=== PATIENT | female | born 1990 | race Caucasian/White ===

== ENCOUNTER → 2019-07-08 13:52 | Outpatient (BNVA) | payer OTHER, SELFPAY | PROVIDERS: Family Provider Nurse Practitioner; PCP Nurse Practitioner; Visit Provider Obstetrics & Gynecology | DX: Z32.00 Encounter for pregnancy test, result unknown (principal) | CPT/HCPCS: 81025 ==

== ENCOUNTER → 2019-08-12 08:58 | Outpatient (BNVA) | payer OTHER, MEDICAID, SELFPAY | PROVIDERS: Family Provider Nurse Practitioner; PCP Nurse Practitioner; Visit Provider Obstetrics & Gynecology | DX: Z34.90 Encounter for supervision of normal pregnancy, unspecified, unspecified trimester (principal) | CPT/HCPCS: 80053; 80307; 84315; 85027; 86592; 86762; 86803; 86850; 86900; 87340; 87806 ==

== ENCOUNTER → 2019-08-31 14:38 | Outpatient (BNVA) | payer OTHER, SELFPAY | PROVIDERS: Family Provider Nurse Practitioner; PCP Nurse Practitioner; Visit Provider Obstetrics & Gynecology | DX: Z34.01 Encounter for supervision of normal first pregnancy, first trimester (principal) | CPT/HCPCS: 84315; 87491; 87591 ==

== ENCOUNTER → 2019-10-28 11:42 | Outpatient (BNVA) | payer OTHER, MEDICAID, SELFPAY | PROVIDERS: Family Provider Nurse Practitioner; PCP Nurse Practitioner; Visit Provider Obstetrics & Gynecology | DX: R30.0 Dysuria (principal) | CPT/HCPCS: 80053; 81003 ==

== ENCOUNTER → 2019-12-15 12:05 | Outpatient (BNVA) | payer OTHER, MEDICAID, SELFPAY | PROVIDERS: Family Provider Nurse Practitioner; PCP Nurse Practitioner; Visit Provider Obstetrics & Gynecology | DX: Z34.01 Encounter for supervision of normal first pregnancy, first trimester (principal) | CPT/HCPCS: 80053; 82950; 84315; 85025 ==

== ENCOUNTER → 2019-12-21 08:27 | Outpatient (BNVA) | payer OTHER, MEDICAID, SELFPAY | PROVIDERS: Family Provider Nurse Practitioner; PCP Nurse Practitioner; Visit Provider Obstetrics & Gynecology | DX: Z34.01 Encounter for supervision of normal first pregnancy, first trimester (principal) | CPT/HCPCS: 82951; 82952 ==

== ENCOUNTER → 2020-02-10 10:50 | Outpatient (BNVA) | payer OTHER, MEDICAID, SELFPAY | PROVIDERS: Family Provider Nurse Practitioner; PCP Nurse Practitioner; Visit Provider Obstetrics & Gynecology | DX: Z34.03 Encounter for supervision of normal first pregnancy, third trimester (principal) | CPT/HCPCS: 84315; 87081 ==

== ENCOUNTER 2020-02-22 22:23 | Outpatient (CLI) | payer OTHER, MEDICAID, SELFPAY ==
[2020-02-22 22:25] VITALS: RESP 16; TEMP 36.8
[2020-02-22 22:50] VITALS: PULSE 119; O2SAT 97
[2020-02-22 22:54] VITALS: BMI 28.3
[2020-02-22 22:55] VITALS: PULSE 101; O2SAT 97
[2020-02-23 00:09] VITALS: RESP 15; TEMP 36.6
== END 2020-02-23 00:10 | disposition home or self-care (01) ==
LOC: OPOB 22:41 → OBGYN 02-23
PROVIDERS: PCP Nurse Practitioner; Visit Provider Obstetrics & Gynecology
DX: O46.90 Antepartum hemorrhage, unspecified, unspecified trimester (principal); Z3A.00 Weeks of gestation of pregnancy not specified
CPT/HCPCS: 59025; 99211

== ENCOUNTER → 2020-02-29 14:50 | Outpatient (BNVA) | payer OTHER, MEDICAID, SELFPAY | PROVIDERS: PCP Nurse Practitioner; Visit Provider Obstetrics & Gynecology | DX: Z34.03 Encounter for supervision of normal first pregnancy, third trimester (principal) | CPT/HCPCS: 84315; 87635 ==

== ENCOUNTER 2020-03-06 07:23 | Inpatient (IN) | payer OTHER, MEDICAID, SELFPAY ==
[2020-03-05 19:30] VITALS: TEMP 36.5
[2020-03-05 19:52] VITALS: BMI 28.6
[2020-03-05 20:40] LABS: Basophils % 0.1 %; Eosinophils # 0.1 10^3/uL (0.0-0.8); Eosinophils % 0.6 %; Hematocrit 33.9 % (37.0-47.0); Hemoglobin 11.4 g/dL (11.5-15.3); Lymphocytes # 1.4 10^3/uL (0.8-4.8); Lymphocytes % 17.5 %; Mean Corpuscular HGB Conc 33.6 g/dL (30.0-36.0); Mean Corpuscular Hemoglobin 31.1 pg (28.0-34.0); Mean Corpuscular Volume 92.4 fL (81-99); Mean Platelet Volume 11.8 fL (7.4-10.4); Monocytes # 0.4 10^3/uL (0.2-0.9); Monocytes % 5.3 %; Neutrophils # 6.09 10^3/uL (1.8-7.7); Neutrophils % 75.9 %; Nucleated Red Blood Cells % 0 %; Platelet Count 239 10^3/cmm (130-400); Red Blood Count 3.67 10^6/uL (4.1-5.3); Red Cell Distribution Width 13.4 % (12.1-15.1)
[2020-03-05 20:50] VITALS: BP 112/55; PULSE 90
[2020-03-05] MEDS: miSOPROStol 100 mcg tablet 25 MCG VAGINAL (21:18)
[2020-03-05 21:20] VITALS: BP 102/51; PULSE 91
[2020-03-05 21:50] VITALS: BP 110/60; PULSE 90
[2020-03-05 22:02] LABS: Amphetamines Screen Urine Negative (Negative); Barbiturates Screen Urine Negative (Negative); Benzodiazepines Screen Urine Negative (Negative); Cocaine Screen Urine Negative (Negative); Opiate Screen Urine Negative (Negative); PCP Screen Urine Negative (Negative); THC Screen Urine Negative (Negative)
[2020-03-06] VITALS (87 sets, daily range): BP systolic 0–156; BP diastolic 0–97; PULSE 69–138; RESP 16–20; TEMP 36.6–36.9; O2SAT 98–100
[2020-03-06] MEDS: miSOPROStol 100 mcg tablet 25 MCG VAGINAL (01:12)
[2020-03-06] MEDS: oxytocin 30 UNIT/500 ML BAG IV (10:35)
[2020-03-06] MEDS: dextrose 5%-lactated ringers 1,000 ML 125 ML IV ×2 (10:36→16:19)
--- NOTE | 2020-03-06 10:45 | PM.OBGYHP ---
Providers/Chief Complaint Admitting Physician: Brett Goldsmith MD Primary TRANSPORTATION SPECIALIST: Van Winchester MD Primary Care Provider: MAKENZIE Fox Chief Complaint: INDUCTION OF LABOR HPI TRANSPORTATION SPECIALIST History of Present Illness Patient is a 29-year-old female, 1, para 0 with an LMP of 05/31/2019 and an EDC of 03/06/2020 based on LMP and consistent with an 8-week ultrasound, which places her at 40-0/7 weeks gestation today. She presented to labor and delivery in the evening of 03/05/2020 for cervical ripening and induction of labor due to term . She received 2 doses of Cytotec 25 mcg vaginally during the night. This morning she had made minimal to no cervical change. She was daryl between 2 to 5 minutes apart. She reports being more uncomfortable this morning. She has noticed some bloody tinged discharge. She reports baby has been moving well. She was without other complaints other than her back hurting. care has been mainly provided by Dr. Winchester at [facility]. Her had been uncomplicated. LABS: 08/12/2019 Blood type: A positive Antibody screen : Negative Intake CBC: 8.5<13.9/41.7> 306 Cystic fibrosis: Declined Rubella : Immune Hepatitis B surface antigen: Nonreactive Hepatitis C antibody: Nonreactive RPR: Nonreactive HIV: Nonreactive Drug screen: Negative Urine culture: Less than 5000 contaminants, no GBS NIPT: Declined 08/31/2019 Gonorrhea: Negative Chlamydia: Negative Pap smear: Negative for intraepithelial lesion or malignancy-05/11/2017 (Susan Zheng) 09/23/2019 Quad screen: Declines 12/15/2019: CBC: 10.1<11.2/33.4> 270 GCT: 156--elevated-needs 3-hour fasting GTT Urine culture: (Hematuria )--->less than 5000 contaminants, no GBS 12/21/2019: 3-hour GTT:--- 88, 171, 167, 125--only one abnormal value-not diabetic 02/10/2020 GBS: Negative 02/29/2020 COVID: Negative. OB Ultrasound LMP-05/31/2019 JEREMY by LMP-03/06/2020 1) 08/01/2019([facility]-dating) AUA-8w5d JEREMY by sono-03/04/2020 S=D --------> single live intrauterine , yolk sac pole noted, FH 174 bpm, bilateral ovaries appear normal, no free fluid, cervix closed. 2) 10/19/2019([facility]-anatomy) AUA-20w5d JEREMY by sono-03/02/2020 S=D -----> single live intrauterine , female, cephalic, anterior grade 1 placenta without previa, cervix closed-4 cm, STONE CARRIAGE OPERATOR-4.8 cm, EFW 358 g, 13 ounces, 66 percentile. Anatomy reviewed normal and complete Review of Systems Const: Denies: fever(s) or chills ENMT: Denies: throat pain or nasal congestion Card: Reports: swelling of feet/ankles; Denies: chest pain, palpitations or lightheadedness Resp: Denies: dyspnea, productive cough, non-productive cough or wheezing GI: Reports: abdominal pain; Denies: nausea, vomiting, diarrhea or constipation : Reports: urinary frequency and vaginal bleeding (This morning); Denies: difficulty voiding, dysuria, urinary urgency, hematuria, genital pruritis or vaginal discharge Musc: Reports: back pain Neuro: Denies: headache(s), dizziness or seizure-like activity Psych: Denies: anxiety or depression Tra/Lymph: Denies: easy bruising or easy bleeding Medications/Allergies Home Medications Medication Instructions Recorded Confirmed Last Taken Type prenat.vits,jorge,lib-rtor-vtsnz 1 tab PO DAILY 07/22/19 03/05/20 03/05/20 History Allergies Allergy/AdvReac Type Severity Reaction Status Date / Time promethazine AdvReac Seizure Verified 02/29/20 14:51 like shaking PFSH TRANSPORTATION SPECIALIST PFSH: Medical History No pertinent past medical history Denies: Hypertension, diabetes, hypercholesterol, heart, liver, lung, kidney, thyroid problems, bleeding or clottig disorders, DVT/PE, Genital herpes. 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 History History History 1 Term 0 Miscarriages/Ectopic 0 0 Living Children 0 Care JEREMY Calculator Estimated Delivery Date Method Current WG Current Estimate 03/06/20 LMP (Certain) 40w 0d Expected Delivery Route/Plan Vaginal. Specific Issues/Plans Constipation-controlled on Colace Vitals/I&O/Wt Last Vital Signs Temp 97.8 F 03/06/20 08:00 Pulse 84 03/06/20 09:43 Resp 16 03/06/20 08:00 BP 130/80 03/06/20 09:43 Weight last 48 hrs Weight 183 lb Physical Exam Const: COMMON NORMALS: no acute distress, average body habitus, alert and well nourished GENERAL APPEARANCE: well developed ORIENTATION/CONSCIOUSNESS: Yes oriented to person, Yes oriented to place and Yes oriented to time GI: COMMON NORMALS: Soft to palpation, non-tender, No hepatosplenomegaly present and no masses (Except for nontender gravid uterus) INSPECTION: Yes gravid abdomen AUSCULTATION: Yes normoactive bowel sounds PALPATION: Yes Soft to palpation, Yes No hepatosplenomegaly present and No Hernia present : EXTERNAL FEMALE EXAM: No Hernia present OTHER: Cervical exam (per nurse at 08:40) 75%, 2 cm, -3 station Extremity: COMMON NORMALS: no calf tenderness NARRATIVE EXTREMITY EXAM: Trace to 1+ lower extremity edema Neuro: SENSORIUM/ORIENTATION: Yes alert, Yes oriented to person, Yes oriented to place and Yes oriented to time Psych: COMMON NORMALS: normal affect MOOD & AFFECT: Yes euthymic mood Data : 03/05/20 20:30 Other data: Monitoring: Baseline heart rate 130s with moderate variability, reactive, no decelerations noted. Category 1 tracing. Contractions every 2 to 4 minutes. A&P Assessment and plan (1) Supervision of normal : Patient is currently 40-0/7 weeks gestation. She is being induced for term . She has received 2 doses of Cytotec 25 mcg vaginally during the night. She has now been started on Pitocin for induction of labor. I discussed with the patient and her partner that this could take several days. Prior to starting the Pitocin, I had given her the option of going home and coming back in in a few days to try this again. I discussed with her that in many cases, she has a better chance of proceeding into labor on her own with additional time being given. Questions were answered. Patient wanted to go ahead and proceed with induction of labor. Status: Acute Qualifiers: Normal : normal first Trimester: third trimester Qualified Code(s): Z34.03 - Encounter for supervision of normal first , third trimester Attestations Medical Necessity Statement*: Labor is being induced. Coding Level of Care Code Acute Tool Design Checker for Vicki Fwd Diagnoses Supervision of normal Z34.03 Normal : normal first Trimester: third trimester
[2020-03-06] MEDS: ondansetron 2 mg/ML SDV 2 mL 4 MG IVP ×3 (11:44→23:18)
[2020-03-06] MEDS: fentaNYL 50 mcg/mL INJ 2mL IVP ×2 (12:04→13:07)
[2020-03-06] MEDS: lactated ringers 1,000 ML 999 ML IV ×2 (12:39→13:41)
--- NOTE | 2020-03-06 13:41 | ANES.PREANE2 ---
Pre-Anesthetic Assessment Pre-Anesthetic Assessment: Height/Weight: Height 1.7 m Weight 83.007 kg Temp Pulse Resp BP 97.8 F 69 20 H 108/62 03/06/20 08:00 03/06/20 12:06 03/06/20 13:07 03/06/20 12:06 Preop Diagnosis: labor pains Proposed Procedure: epidural Was Beta Sandeep taken within 24 hours: N/A Social: Social History: No alcohol and No tobacco Exam: Pre-Anes Outpt Exam: alert, oriented x 3, clear to auscultation bilaterally and regular rate & rhythm Airway: Submandibular: WNL Cervical ROM: WNL MP: 2 Dentition: Full Pulmonary: Pulmonary: None reported CV/HEM: CV/HEM: None reported : : None reported Hepatic: Hepatic: None reported GI: GI: GERD Metabolic: Metabolic: None reported Musc/skel: Musc/skel: None reported Neuropsych: Neuropsych: None reported Anesthetic Plan: ASA status: 2 Anesthesia: Regional (specify below) Risk of > 500 ml blood loss (7ml/kg in children): No Meds/Allergies Current Medications: Current Medications Generic Name Dose Route Start Last Admin Trade Name Freq PRN Reason Stop Dose Admin Fentanyl 25 - 100 mcg 03/06/20 10:17 03/06/20 13:07 Fentanyl 50 Mcg/ Ml Inj 2ml IVP 50 mcg Q1H PRN Administration SEVERE PAIN Dextrose/Lactated Ringer's 1,000 mls @ 125 m ls/hr 03/05/20 20:15 03/06/20 12:39 Dextrose 5%-Lact ated Ringers IV Infused .Q8H СВЕТЛАНА Infusion Oxytocin 30 unit in 500 ml s @ 2 mls/hr 03/06/20 10:15 03/06/20 11:45 Pitocin IV 10 milliunit/min .Q24H СВЕТЛАНА 10 mls/hr Titration Protocol 2 MILLIUNIT/MIN Lactated Ringer's 1,000 mls @ 999 m ls/hr 03/06/20 12:14 03/06/20 13:41 Lactated Ringers IV 999 mls/hr .Q1H1M PRN Administration See label comment s Ondansetron HCl 4 mg 03/05/20 19:57 03/06/20 11:44 Ondansetron 2 Mg /Ml Sdv 2 Ml IVP 4 mg Q4H PRN Administration NAUSEA AND VOMITI NG PFSH Anesthesia PFSH: Medical History No pertinent past medical history Denies: Hypertension, diabetes, hypercholesterol, heart, liver, lung, kidney, thyroid problems, bleeding or clottig disorders, DVT/PE, Genital herpes. 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 Female Reproductive History: : 1 Data Anesthesia CBC & Chem 7: 03/05/20 20:30 Other Labs: Laboratory Results - last 48 hr 03/05/20 03/05/20 20:30 20:30 WBC 8.0 RBC 3.67 L Hgb 11.4 L Hct 33.9 L MCV 92.4 MCH 31.1 MCHC 33.6 RDW 13.4 Plt Count 239 MPV 11.8 H Neut % (Auto) 75.9 Lymph % (Auto) 17.5 Holt % (Auto) 5.3 Eos % (Auto) 0.6 Baso % (Auto) 0.1 Neut # (Auto) 6.09 Lymph # (Auto) 1.4 Holt # (Auto) 0.4 Eos # (Auto) 0.1 Baso # (Auto) 0.0 Nucleated RBC % (auto) 0 Nucleated RBCs # 0.0 Urine Opiates Screen Negative Ur Barbiturates Screen Negative Ur Phencyclidine Scrn Negative Ur Amphetamines Screen Negative U Benzodiazepines Scrn Negative Urine Cocaine Screen Negative U Marijuana (THC) Screen Negative Cardiac Studies: No Data to Display
--- NOTE | 2020-03-06 14:10 | P.ANES_ITS ---
Anesthesia Procedures Procedure/Date: 03/06/20 epidural Procedure Narrative: epidural complete, bolus given, epidural pump initiated with STEAM CLEANING MACHINE OPERATOR education given, vitals taken during procedure using OBIX system and satisfactory throughout, patient admits to decrease pain, report of procedure to OB RN Epidural: Time Out Performed: Yes Consents Signed: Procedure Consent Consent: requested by attending/covering physician, from patient, risks and benefits reviewed and patient agrees to proceed Lumbar Level: L3-L4 Epidural position: sitting Epidural procedure: sterile prep of area, 1% lidocaine to numb the area (3 mL), 18 g needle, negative for paresthesia passed, neg for paresthesia, test dose given, 1.5% xylocaine 1:200k epi (5 mL), 0.2% Ropivacaine bolus ml (5 mL), placed PCEA, no systemic response, sterile dressing applied, L.U.D. no apparent complications and 0.2% Ropiavacaine @ mls/hr (13 mL/hr)
[2020-03-06] MEDS: lidocaine 2% INJ 20 mL INJECTION (21:26)
--- NOTE | 2020-03-06 21:42 | P.PCNOB_ITS ---
Delivery Note: Date of delivery: March 06, 2020 Pre-delivery diagnoses: 1. Term at 40-0/7 weeks gestation 2. Meconium fluid. Post-delivery diagnoses: 1. Term at 40-0/7 weeks gestation - delivered 2. Fourth degree vaginal/perineal laceration - delivered. 3. Meconium fluid - delivered. 4. Viable female . Procedure: Spontaneous vaginal delivery with fourth degree vaginal/perineal laceration repair. Op report anesthesia: Epidural and Local Delivering Physician: Dr. Brett Goldsmith Estimated blood loss (mL): 300 Pre-Delivery Course: Patient is a 29-year-old female, 1, now para 1-0-0-1 with an LMP of 05/31/2019 and an EDC of 03/06/2020 based on LMP and consistent with an 8-week ultrasound, which placed her at 39-6/7 weeks gestation at the time of admission. She presented to labor and delivery at 19:01 on 03/05/2020 for induction of labor due to term . Her cervix on admission was 50% effaced and 1 cm dilated. She received 2 doses of Cytotec 25 mcg vaginally during the night. By approximately 06:00 on 03/06, she was 75% effaced and 2 cm dilated. She was daryl mildly and irregularly. By approximately 10:30 she was started on Pitocin induction. She became more uncomfortable during the afternoon and had epidural placed. By 16:00 she had spontaneous rupture of membranes with light meconium fluid present. She was 6 cm dilated. She progressed to complete dilation by 18:28. monitoring was reassuring during the labor course. Delivery: She started pushing at 18:39 and delivered at 20:20 as a spontaneous vaginal delivery of an occiput anterior female infant over a second-degree midline episiotomy under epidural anesthesia. Following delivery of the 's head, no nuchal cords were noted. The was spontaneously crying and placed on the mother's abdomen. Cord was clamped and then cut by the reported father of the baby. Baby was left in the care of the waiting nurses. Pitocin bolus was started. Placenta delivered intact by simple expression at 20:23. The cervix was palpated and noted to be intact. Vagina was palpated and a defect was noted along the right vaginal sidewall. On inspection, she was found to have a full-thickness, right sided, vaginal laceration that extended into the paravaginal space. It extended from the hymenal ring to approximately 6 cm along the vaginal wall and located at the approximately the 9 o'clock position. Patient was also noted to have a fourth degree perineal/vaginal extension of her second-degree episiotomy for approximately 3 cm length along the rectum from the anal opening. Patient also had a superficial right periurethral laceration. The periurethral laceration was hemostatic and required no repair. The vaginal sidewall was injected with 2% lidocaine plain. Starting at the apex of the vaginal sidewall laceration, the laceration was reapproximated using 3-0 Vicryl suture in a running locking fashion. The episiotomy and vaginal and perirectal tissue was injected with 2% lidocaine plain. The rectal mucosa was reapproximated in a simple running fashion using 3-0 chromic suture. The muscle of the anal sphincter was identified and grasped with Allis clamps. The muscle and surrounding capsule was reapproximated using 2-0 Vicryl suture in an interrupted fashion with stitches placed at 6, 8, 4, 10, 2, and 12:00 positions. This reapproximated the anal sphincter and capsule of the sphincter well. The posterior vaginal wall and deeper tissue was reapproximated using 3-0 Vicryl suture in a running locking fashion. At the hymenal ring, a transition stitch was made. The bulbocavernosus muscles were incorporated into the stitch bilaterally and it was then tied, pulling the bulbocavernosus muscles together well. The perineal body was reapproximated in a running fashion using 3-0 Vicryl suture. The perineal skin was reapproximated in a subcuticular fashion using 3-0 Vicryl suture. FINDINGS 1. Viable female , weighing 8 lbs 0 oz (3635 g) with a length of 21 inches and Apgars of 9 at 1 minute and 9 at 5 minutes. 2. Three-vessel cord with no loops of nuchal cord noted. 3. Normal-appearing placenta with an eccentric cord insertion. Post-Delivery Status: Mother and were left to recover in satisfactory condition. A&P Assessment and plan (1) Spontaneous vaginal delivery: Status: Acute (2) Fourth degree laceration of perineum, delivered, current hospitalization: Status: Acute Coding Level of Care Code Acute Corporate Specialist for Chg Fwd Diagnoses Spontaneous vaginal delivery O80 Fourth degree laceration of perineum, delivered, current hospitalization O70.3
[2020-03-06] MEDS: TRAMadol 50 mg Tablet PO (23:17)
[2020-03-07] VITALS (7 sets, daily range): BP systolic 100–130; BP diastolic 55–80; PULSE 86–98; RESP 16; TEMP 36.4–36.9; O2SAT 96–98
[2020-03-07] MEDS: ondansetron 2 mg/ML SDV 2 mL 4 MG IVP (03:33)
[2020-03-07] MEDS: TRAMadol 50 mg Tablet PO (03:33)
[2020-03-07] MEDS: ibuprofen 800 mg tablet PO ×3 (10:01→21:25)
[2020-03-07] MEDS: docusate sodium 100 mg Capsule PO ×2 (10:02→18:09)
[2020-03-07 11:58] LABS: Hematocrit 31.5 % (37.0-47.0); Hemoglobin 10.5 g/dL (11.5-15.3); Mean Corpuscular HGB Conc 33.3 g/dL (30.0-36.0); Mean Corpuscular Hemoglobin 30.6 pg (28.0-34.0); Mean Corpuscular Volume 91.8 fL (81-99); Mean Platelet Volume 11.8 fL (7.4-10.4); Platelet Count 216 10^3/cmm (130-400); Red Blood Count 3.43 10^6/uL (4.1-5.3); Red Cell Distribution Width 13.4 % (12.1-15.1); White Blood Count 12.5 10^3/uL (4.0-10.0)
--- NOTE | 2020-03-07 17:51 | P.DS_ITS ---
Discharge Providers ORNAMENTAL IRON ERECTOR Date of Admission: 03/06/20 10:22 Date of Discharge: 03/07/20 Attending Provider at Admission: Brett Goldsmith MD Attending Provider at Discharge: Brett Goldsmith MD Primary ORNAMENTAL IRON ERECTOR: Van Winchester MD Primary Care Provider: MAKENZIE Fox Diagnoses at Discharge Discharge Diagnosis (1) Spontaneous vaginal delivery: Status: Acute (2) Fourth degree laceration of perineum, delivered, current hospitalization: Status: Acute Reason for Visit Reason for Visit: INDUCTION OF LABOR Hospital Course Hospital Course Patient is a 29-year-old female, 1, now para 1-0-0-1 with an LMP of 05/31/2019 and an EDC of 03/06/2020 based on LMP and consistent with a 8-week ultrasound, which placed her at 39-6/7 weeks gestation at the time of admission. She presented to L&D on 03/05/2020 at 19:01 for cervical ripening and induction of labor due to term . She was 50% effaced and 1 cm dilated on admission. She was started on Cytotec and received 2 doses of 25 mcg vaginally during the night. By the following morning she was 75% effaced and 2 cm dilated. She was given the option at that time of going home to come back on another day and try again or to proceed with Pitocin induction. She decided that she wanted to go ahead and go with the Pitocin. She was started on Pitocin at approximately 10:30. She became more uncomfortable and had epidural placed during the afternoon. She had spontaneous rupture of membranes with light meconium fluid present at 16:00 and was 6 cm dilated. She progressed to complete dilation by 18:28. She started pushing at 18:39 and delivered at 20:20 as a spontaneous vaginal delivery of an occiput anterior female over a second-degree midline episiotomy under epidural anesthesia. The baby weighed 8 lbs 0 oz (3635 g) with a length of 21 inches and Apgars of 9 at 1 minute 9 at 5 minutes. She had a large right sided full-thickness vaginal sidewall laceration at approximately the 9 o'clock position of the vagina. It extended for approximately 6 cm in length. She also had a fourth-degree extension of her second-degree episiotomy. Day 1 Patient reports doing well. She states that her pain is been well controlled. She is tolerating a regular diet without nausea or vomiting. She is ambulating without lightheadedness or dizziness. She denied shortness of breath or chest pains. She denies any problems with urination. She states that her bleeding has slowed. She is breast-feeding. She is requesting to go home today. Physical exam: See below. Plan Discharge to home. Discharge instructions discussed with patient. Patient was instructed to take MiraLAX and stool softeners at home. She plans to use [id number] ibuprofen and Tylenol as needed for pain. She is to follow-up in the office in approximately 6 weeks. Information Peripartum Data: Delivery Method: Vaginal Laceration description: Perineal - 4th Degree [place]: 1: Gender: Female Additional Information: weighing 8 lbs 0 oz (3635 g) with a length of 21 inches and Apgars of 9 at 1 minute and 9 at 5 minutes Physical Exam Const: COMMON NORMALS: no acute distress, average body habitus, alert and well nourished GENERAL APPEARANCE: well developed ORIENTATION/CONSCIOUSNESS: Yes oriented to person, Yes oriented to place and Yes oriented to time Resp: COMMON NORMALS: normal respiratory effort and clear to auscultation bilaterally AUSCULTATION: clear to auscultation bilaterally Cardio: COMMON NORMALS: regular rate, regular rhythm, No gallops present (Cardio), No murmurs present (Cardio) and No rub (Cardio) RATE: regular rate RHYTHM: regular rhythm GI: COMMON NORMALS: Soft to palpation, non-tender, No hepatosplenomegaly present and no masses (Except for nontender uterus) AUSCULTATION: Yes normoactive bowel sounds PALPATION: Yes Soft to palpation, Yes No hepatosplenomegaly present and No Hernia present : EXTERNAL FEMALE EXAM: No Hernia present Extremity: COMMON NORMALS: no calf tenderness NARRATIVE EXTREMITY EXAM: Trace to 1+ lower extremity edema bilaterally Neuro: SENSORIUM/ORIENTATION: Yes alert, Yes oriented to person, Yes oriented to place and Yes oriented to time Psych: COMMON NORMALS: normal affect MOOD & AFFECT: Yes euthymic mood Urinary Catheter Management^: [place]: Cath Placed During This Visit: yes, but has since been removed by the nurse Reason for Continuing Indwelling Catheter: Other Urinary Catheter Date of Insertion: 03/06/20 Urinary Catheter Time of Insertion: 14:49 Date Urinary Catheter Removed: 03/06/20 Time Urinary Catheter Discontinued: 18:35 Discharge Data Data Completed and Pending: Labs from last 24 hours 03/07/20 11:40 WBC 12.5 H RBC 3.43 L Hgb 10.5 L Hct 31.5 L MCV 91.8 MCH 30.6 MCHC 33.3 RDW 13.4 Plt Count 216 MPV 11.8 H Vitals: Last Vital Signs Temp 98.4 F 03/07/20 16:29 Pulse 86 03/07/20 16:29 Resp 16 03/07/20 16:29 BP 109/67 03/07/20 16:29 Pulse Ox 98 03/07/20 16:29 Discharge Plan Discharge Patient Disposition: Home Condition: Stable Prescriptions: Continued prenat.vits,jorge,[id number] Tablet 1 tab PO DAILY RF: 0 Discharge Orders: Discharge Order (Routine); Ordered 03/07/20 Ordered By: Brett Goldsmith Referrals: Van Keller MD [Physician] - 04/18/20 10:15 am ( exam) Discharge Diet: Regular Discharge Activity: Limit activity as instructed Patient Instructions: OB Vaginal Deliveries - [facility] Activity Restrictions/Additional Instructions: MiraLAX, use daily as instructed on bottle. OTC ibuprofen 200 mg, 3 tablets 4 times a day or 4 tablets 3 times a day, as needed for pain OTC Tylenol, use as instructed on the bottle. Discharge Attestations ORNAMENTAL IRON ERECTOR Time Spent in Discharge Care*: less than 30 min Coding Level of Care Code Acute Superintendent Plant for [facility] Fwd Diagnoses Spontaneous vaginal delivery O80 Fourth degree laceration of perineum, delivered, current hospitalization O70.3
--- NOTE | 2020-03-07 19:31 | PC.NURSE ---
1900 at patient bedside assisting with latching. Instruction on how to apply, latch, clean and weaning of nipple shield
[2020-03-07] MEDS: benzocaine-menthol 78 gm Canister 1 SPRAY TOPICAL (21:25)
== END 2020-03-07 21:27 | disposition home or self-care (01) | DRG 768 ==
LOC: OPOB 03-07 07:51 → OBGYN 03-07 07:51 → OPOB 03-07 07:52
PROVIDERS: Admitting Provider Obstetrics & Gynecology; PCP Nurse Practitioner; Visit Provider Obstetrics & Gynecology
DX: O48.0 Post-term pregnancy (principal); Z37.0 Single live birth; O70.3 Fourth degree perineal laceration during delivery; Z3A.40 40 weeks gestation of pregnancy; O75.89 Other specified complications of labor and delivery; K59.00 Constipation, unspecified
CPT/HCPCS: 12345; 36415; 51702; 59409; 80306; 85025; 85027; 98960; G0378; J2405; J2795; J3010

== ENCOUNTER → 2020-04-18 10:55 | Outpatient (BNVA) | payer OTHER, BC, MEDICAID, SELFPAY | PROVIDERS: PCP Nurse Practitioner; Visit Provider Obstetrics & Gynecology | DX: Z39.2 Encounter for routine postpartum follow-up (principal); Z30.9 Encounter for contraceptive management, unspecified; L92.9 Granulomatous disorder of the skin and subcutaneous tissue, unspecified | CPT/HCPCS: 88175 ==

== ENCOUNTER → 2020-05-04 14:55 | Outpatient (BNVA) | payer OTHER, BC, MEDICAID, SELFPAY | PROVIDERS: PCP Nurse Practitioner; Visit Provider Obstetrics & Gynecology | DX: Z30.9 Encounter for contraceptive management, unspecified (principal); R10.2 Pelvic and perineal pain | CPT/HCPCS: 81025 ==

== ENCOUNTER → 2022-02-03 11:19 | Outpatient (BNVA) | payer BC, MEDICAID, SELFPAY | PROVIDERS: Visit Provider Registered Nurse Neonatal Intensive Care | DX: R05.9 Cough, unspecified (principal) | CPT/HCPCS: 87400 ==

== ENCOUNTER 2022-08-31 16:15 | Inpatient (IN) | payer BC, MEDICAID, SELFPAY ==
[2022-08-31 16:36] VITALS: BP 101/69; PULSE 130; RESP 20; TEMP 36.5; O2SAT 97; BMI 26.6
--- NOTE | 2022-08-31 17:05 | ED_ITS ---
HPI - Abdominal Pain General: Chief Complaint: Abdominal Pain Stated Complaint: Possible miscarriage abd pain Time Seen by Provider: 08/31/22 16:52 History of Present Illness: Patient presents to the ER with complaints of being 5 weeks and started having bright red vaginal bleeding last night and having severe lower pelvic cramps. Patient complains of nausea and vomiting secondary to the pain but no diarrhea. This is a patient second patient will have these problems with her first . Review of Systems General: Reports: 10 or more systems reviewed and unremarkable except in HPI and below PFSH ED PFSH: Medical History Depression Is seeing , but is struggling to find a good medication that velazquez s not make her sleepy. No pertinent past medical history Denies: Hypertension, diabetes, hypercholesterol, heart, liver, lung, kidney, thyroid problems, bleeding or clottig disorders, DVT/PE. PCP: MAKENZIE Shah Surgical History H/O arthroscopic knee surgery (~2003) right knee--done for a torn meniscus Family History Denies family history of Colon cancer Ovarian cancer Diabetes Heart disease Hyperlipidemia Breast cancer Family history of thyroid problem Hypertension Uterine cancer Stroke Social History Substance/Drug Use: never Physical Exam Const: COMMON NORMALS: no acute distress, average body habitus, patient oriented x3, no limitations, healthy appearing, alert and well nourished HENMT: COMMON NORMALS: normocephalic, atraumatic, hearing grossly normal bilaterally, external ears normal, Normal external nose present and moist oral mucous membranes HEAD & SCALP: normocephalic and atraumatic NOSE: Normal external nose present EXTERNAL EAR: Yes external ears normal Neck/C-Spine: COMMON NORMALS: full ROM, no lymphadenopathy, supple, no meningeal signs, no JVD and Thyroid normal THYROID: Thyroid normal Chest: COMMONS NORMALS: normal inspection of the chest and normal palpation of entire chest wall Resp: COMMON NORMALS: normal respiratory effort, No retractions, No use of accessory muscles and clear to auscultation bilaterally AUSCULTATION: clear to auscultation bilaterally Cardio: COMMON NORMALS: no JVD, regular rate, regular rhythm, S1 normal heart sound present, S2 normal heart sound present, No gallops present (Cardio), No clicks present (Cardio), No murmurs present (Cardio) and No rub (Cardio) RATE: regular rate RHYTHM: regular rhythm HEART SOUNDS: S1 normal heart sound present and S2 normal heart sound present GI: COMMON NORMALS: Normal to inspection, nondistended, normoactive bowel sounds present, Soft to palpation, non-tender, No hepatosplenomegaly present and no masses PALPATION: Yes Soft to palpation, Yes Tenderness to palpation present (GI) and Yes No hepatosplenomegaly present : COMMON NORMALS: Yes no CVA tenderness BLADDER/KIDNEY EXAM: Yes no CVA tenderness Back/Pelvis: COMMON NORMALS: no CVA tenderness Neuro: COMMON NORMALS: patient oriented x3 SENSORIUM/ORIENTATION: Yes alert MENINGEAL SIGNS: Yes no meningeal signs Course Vital Signs: Vital signs: Vital Signs Temperature 98.1 F 09/01/22 16:07 Pulse Rate 105 H 09/01/22 16:07 Respiratory Rate 16 09/01/22 16:07 Blood Pressure 102/64 09/01/22 16:07 Pulse Oximetry 98 09/01/22 02:56 Oxygen Delivery Me thod Room Air 09/01/22 02:56 MDM - Abdominal Pain Medical Decision Making Presents to the OR approximately 5 weeks having bright red vaginal bleeding and lower severe pelvic pain and cramps. Work-up was obtained which showed a white count of 14.9 otherwise benign lab. OB ultrasound was obtained which was abnormal and did show single intrauterine with ultrasonic age of 6 weeks and 3 days but negative for heart rate, also showed a right adnexal poorly defined 9.2 cm erogenous structure with minimal blood flow which may reflect a hemorrhagic cyst and/or hemorrhagic ectopic . Dr. Melo was consulted and came down and seen the patient and reviewed the images himself. Dr. Melo says the patient will need to go to the OR for at least a laparoscopic look to see what is going on. Patient will then be admitted to Dr. Melo for observation. Differential Diagnosis Likely abdominal pain; Unlikely acute appendicitis, calculus of kidney, constipation, diverticulitis, endometriosis, gastroenteritis, pancreatitis or small bowel obstruction Medical Records I reviewed the patient's medical records. Lab Data I reviewed the patient's lab results. 09/01/22 04:45 08/31/22 17:13 Labs/Radiology: Radiology Impressions Obstetrics Ultrasound 08/31/22 17:44 IMPRESSION: 1. Single intrauterine with ultrasonographic age of 6 weeks 3 days. Negative for heart rate demonstrated, perhaps due to early age. 2. Small amount of free fluid in the pelvis, nonspecific. 3. Right adnexal poorly defined 9.2 cm heterogeneous structure with minimal peripheral color flow on several images. Finding may reflect a hemorrhagic cyst or perhaps a hemorrhagic ectopic , please correlate clinically. ADDENDUM: 08/31/222016 THIS REPORT CONTAINS FINDINGS THAT MAY BE CRITICAL TO PATIENT CARE. Dr. Leiva adv has seen report and has no questions, adv he just spoke to Ob about this case at 8:16 PM CDT on 08/31/2022. The findings were acknowledged and understood. Laboratory Results WBC 14.9 10^3/uL (4.0-10.0) H 08/31/22 17:13 RBC 4.34 10^6/uL (4.1-5.3) 08/31/22 17:13 Hgb 13.3 g/dL (11.5-15.3) 08/31/22 17:13 Hct 40.4 % (37.0-47.0) 08/31/22 17:13 MCV 93.1 fl (81-99) 08/31/22 17:13 MCH 30.6 pg (28.0-34.0) 08/31/22 17:13 MCHC 32.9 g/dL (30.0-36.0) 08/31/22 17:13 RDW 11.9 % (12.1-15.1) L 08/31/22 17:13 Plt Count 339 10^3/cmm (130-400) 08/31/22 17:13 MPV 10.8 fL (7.4-10.4) H 08/31/22 17:13 Neut % (Auto) 90.9 % 08/31/22 17:13 Lymph % (Auto) 6.5 % 08/31/22 17:13 Ralls % (Auto) 2.2 % 08/31/22 17:13 Eos % (Auto) 0.0 % 08/31/22 17:13 Baso % (Auto) 0.1 % 08/31/22 17:13 Neut # (Auto) 13.51 10^3/uL (1.8-7.7) H 08/31/22 17:13 Lymph # (Auto) 1.0 10^3/uL (0.8-4.8) 08/31/22 17:13 Ralls # (Auto) 0.3 10^3/uL (0.2-0.9) 08/31/22 17:13 Eos # (Auto) 0.0 10^3/uL (0.0-0.8) 08/31/22 17:13 Baso # (Auto) 0.0 10^3/uL (0.0-0.1) 08/31/22 17:13 Nucleated RBC % (auto) 0 % 08/31/22 17:13 Nucleated RBCs # 0.0 /100WBC 08/31/22 17:13 Sodium 135 mmol/L (136-145) L 08/31/22 17:13 Potassium 4.5 mmol/L (3.5-5.1) 08/31/22 17:13 Chloride 102 mmol/L (98-107) 08/31/22 17:13 Carbon Dioxide 20 mmol/L (22-29) L 08/31/22 17:13 Anion Gap 17.5 (5-19) 08/31/22 17:13 BUN 10 mg/dL (6-20) 08/31/22 17:13 Creatinine 0.7 mg/dL (0.5-0.9) 08/31/22 17:13 GFR Calculation 96.4 mL/min (90-130) 08/31/22 17:13 Glucose 123 mg/dL (65-115) H 08/31/22 17:13 Calculated Osmolality 280 mOsm/kg (285-295) L 08/31/22 17:13 Calcium 9.0 mg/dL (8.5-10.5) 08/31/22 17:13 Total Bilirubin 1.0 mg/dL (0.15-1.2) 08/31/22 17:13 AST 14 U/L (0-32) 08/31/22 17:13 ALT 14 U/L (0-33) 08/31/22 17:13 Alkaline Phosphatase 72 U/L (35-105) 08/31/22 17:13 Total Protein 7.5 g/dL (6.6-8.7) 08/31/22 17:13 Albumin 4.5 g/dL (3.5-5.2) 08/31/22 17:13 Globulin 3.0 g/dL (1.3-4.6) 08/31/22 17:13 Ser , Semi-Qnt 2046.00 mIU/mL 08/31/22 17:13 Blood Type A Positive 08/31/22 17:13 Rho(D) Type Positive 08/31/22 17:13 Discharge Plan Discharge Patient Disposition: Admitted As Inpatient Admit Provider: Dennis Melo Clinical Impression: , Pelvic pain affecting , Vaginal bleeding during Condition: Stable Discharge Diet: Usual diet Discharge Activity: Increase activity as tolerated Coding Level of Care Code ED Float Phlebotomist for Vicki Dooley
[2022-08-31 17:22] LABS: Basophils % 0.1 %; Hematocrit 40.4 % (37.0-47.0); Hemoglobin 13.3 g/dL (11.5-15.3); Lymphocytes % 6.5 %; Mean Corpuscular HGB Conc 32.9 g/dL (30.0-36.0); Mean Corpuscular Hemoglobin 30.6 pg (28.0-34.0); Mean Corpuscular Volume 93.1 fl (81-99); Mean Platelet Volume 10.8 fL (7.4-10.4); Monocytes # 0.3 10^3/uL (0.2-0.9); Monocytes % 2.2 %; Neutrophils # 13.51 10^3/uL (1.8-7.7); Neutrophils % 90.9 %; Nucleated Red Blood Cells % 0 %; Platelet Count 339 10^3/cmm (130-400); Red Blood Count 4.34 10^6/uL (4.1-5.3); Red Cell Distribution Width 11.9 % (12.1-15.1); White Blood Count 14.9 10^3/uL (4.0-10.0)
--- NOTE | 2022-08-31 17:44 | USR_ITS ---
PROCEDURE INFORMATION: Exam: US , Limited Exam date and time: 08/31/2022 6:20 PM Age: 32 years old Clinical indication: complicated by abdominal or pelvic pain; Right lower quadrant; First trimester (<14 weeks 0 days); Gestational age or lmp: 5w; ; Additional info: Vag bleeding, cramps, about 5 weeks LABS AND CLINICAL REPORTS: Last menstrual period start date: 07/27/2022 Gestational age (Established): 5 w 0 d Estimated due date (Established): 05/03/2023 TECHNIQUE: Imaging protocol: Real-time ultrasound of the maternal uterus with image documentation. Exam focused on the clinical indication. COMPARISON: US OB >= 14 weeks fetus [facility] 10/19/2019 8:06 AM FINDINGS: Gestation: See Right ovary/adnexa finding. BIOMETRY: Gestational age (AUA): Single intrauterine with ultrasonographic age of 6 weeks 3 days. Negative for heart rate demonstrated, perhaps due to early age. MATERNAL: Uterus: Uterus measures 8.6 cm x 5.6 cm x 5 cm. Right ovary/adnexa: Right adnexal poorly defined 9.2 cm heterogeneous structure with minimal peripheral color flow on several images. Finding may reflect a hemorrhagic cyst or perhaps a hemorrhagic ectopic , please correlate clinically. Left ovary/adnexa: Left adnexal region appears unremarkable. Intraperitoneal space: Small amount of free fluid in the pelvis, nonspecific. US/US OB limited [id number] IMPRESSION: 1. Single intrauterine with ultrasonographic age of 6 weeks 3 days. Negative for heart rate demonstrated, perhaps due to early age. 2. Small amount of free fluid in the pelvis, nonspecific. 3. Right adnexal poorly defined 9.2 cm heterogeneous structure with minimal peripheral color flow on several images. Finding may reflect a hemorrhagic cyst or perhaps a hemorrhagic ectopic , please correlate clinically.
[2022-08-31 17:52] LABS: Alanine Aminotransferase 14 U/L (0-33); Albumin Level 4.5 g/dL (3.5-5.2); Alkaline Phosphatase 72 U/L (35-105); Anion Gap 17.5 (5-19); Aspartate Amino Transferase 14 U/L (0-32); Blood Urea Nitrogen 10 mg/dL (6-20); Carbon Dioxide 20 mmol/L (22-29); Chloride 102 mmol/L (98-107); Creatinine Clr Calc Pharmacy 122.3573; Glomerular Filtration Rate 96.4 mL/min (90-130); Glucose 123 mg/dL (65-115); Osmolality Calculated 280 mOsm/kg (285-295); Potassium 4.5 mmol/L (3.5-5.1); Sodium 135 mmol/L (136-145); Total Protein 7.5 g/dL (6.6-8.7)
[2022-08-31] MEDS: acetaminophen 1,000 MG/100 ML PIGGYBACK 400 MG IV (18:11)
[2022-08-31] MEDS: sodium chloride 0.9% 1,000 ML 999 ML IV (18:16)
[2022-08-31] MEDS: ondansetron 2 mg/ML SDV 2 mL 4 MG IVP ×2 (19:57→21:05)
[2022-08-31] MEDS: morphine 4 mg/mL SDV 1 mL IVP ×2 (19:57→21:05)
--- NOTE | 2022-08-31 21:23 | P.HP_ITS ---
Providers/Chief Complaint Admitting Physician: Dennis Melo MD Primary LEAD CUSTOMER SERVICE REPRESENTATIVE: Dennis Melo M.D. Chief Complaint: Possible miscarriage abd pain approx. 5 weeks preg HPI LEAD CUSTOMER SERVICE REPRESENTATIVE History of Present Illness 32 y.o. LMP? July 25, 2022 Began to have severe lower abdominal pain yesterday at 5 p.m. Pain has worsened Now unable to walk she presented to the ER this afternoon due to worsening abdominal pain, now radiating to the right abdomen Pain began to radiate up on right side after arrival to ER No fever, chills + nausea, vomiting No dysuria + small amount of vaginal bleeding Medications/Allergies Home Medications Medication Instructions Recorded Confirmed Last Taken Type PNV 153-FA 400 mcg-om3 35 mg-dha tab PO 11/17/21 02/03/22 Unknown History 25 mg-epa 5 mg-fish oil chew tablet ( Gummies) etonogestrel 0.12 mg-ethinyl 1 vag ring vaginal .monthly #3 ea 11/17/21 02/03/22 Unknown Rx estradiol 0.015 mg/24 hr vaginal ring (NuvaRing) bupropion HCl 150 mg tablet,12 hr 150 mg PO DAILY 01/02/22 02/03/22 Unknown History sustained-release (Wellbutrin SR) oseltamivir 75 mg capsule 75 mg PO BID 5 days #10 caps 02/03/22 02/03/22 Unknown Rx Allergies Allergy/AdvReac Type Severity Reaction Status Date / Time promethazine AdvReac Seizure Verified 02/03/22 11:14 like shaking PFSH LEAD CUSTOMER SERVICE REPRESENTATIVE PFSH: Medical History Depression Is seeing , but is struggling to find a good medication that does not make her sleepy. No pertinent past medical history Denies: Hypertension, diabetes, hypercholesterol, heart, liver, lung, kidney, thyroid problems, bleeding or clottig disorders, DVT/PE. PCP: MAKENZIE Shah Surgical History H/O arthroscopic knee surgery (~2003) right knee--done for a torn meniscus Family History Denies family history of Colon cancer Ovarian cancer Diabetes Heart disease Hyperlipidemia Breast cancer Family history of thyroid problem Hypertension Uterine cancer Stroke Social History Substance/Drug Use: never History History History 1 Term 1 0 Miscarriages/Ectopic 0 Living Children 1 Vitals/I&O/Wt Last Vital Signs Temp 97.7 F 08/31/22 16:36 Pulse 130 H 08/31/22 16:36 Resp 20 H 08/31/22 16:36 BP 101/69 08/31/22 16:36 Pulse Ox 97 08/31/22 16:36 08/31/22 08/31/22 08/31/22 06:59 14:59 22:59 Intake Total 1000 / 1000 Balance 1000 / 1000 Weight last 48 hrs Weight 170 lb Physical Exam Narrative: In moderate discomfort secondary to abdominal pain Afebrile, VS? normal Awake, alert HEENT:? normal Lungs:? clear Cor:? RRR Abd:? soft, nondistended ? + moderate tenderness on palpation in lower quadrants ? No rebound Ext:? normal Data 08/31/22 17:13 08/31/22 17:13 Results DIET ASSISTANT 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 + intrauterine pole ? CRL c/w 6 weeks ? No heart motion ? + 9.3 cm right complex adnexal mass A&P Assessment and plan (1) Pelvic pain affecting : Approx. 5-6 weeks gestation Acute abdominal pain, severe Complex 9.3 cm right adnexal mass Suspect ectopic gestation vs. hemorrhagic ovarian cyst with torsion Recommend laparoscopy, possible salpingectomy, possible salpingo-oophorectomy, possible exploratory laparotomy Procedures and risks explained to patient, including risks of infection, bleeding, injury to internal organs, anesthesia, blood transfusions Patient understands and wants to proceed Also discussed presence of intrauterine pole without heart motion Most likely missed Ab, nonviable gestation Recommend suction D&C at the same time Procedure and risks explained to patient, including risks of injury to uterus, uterine scarring, which can result in infertility Patient understands and wants to proceed Qualifiers: Trimester: first trimester Qualified Code(s): O26.891 - Other specified related conditions, first trimester; R10.2 - Pelvic and perineal pain Attestations Medical Necessity Statement*: patient at approx 6 weeks with intrauterine pole without heart motion and 9.3 cm complex right ovarian cyst, with severe abdominal pain Coding Level of Care Code Acute Code for Chg Fwd Diagnoses Pelvic pain affecting O26.891; R10.2 Trimester: first trimester Time Spent (min) 60
[2022-08-31 21:27] VITALS: BP 113/90; PULSE 130; RESP 18; O2SAT 97
--- NOTE | 2022-08-31 21:56 | ANES.PREANE2 ---
Pre-Anesthetic Assessment Height/Weight: Height 1.7 m Weight 77.111 kg Temp Pulse Resp BP Pulse Ox O2 Del Method 97.7 F 130 H 18 113/90 97 Room Air 08/31/22 16:36 08/31/22 21:27 08/31/22 21:27 08/31/22 21:27 08/31/22 21:27 08/31/22 21:27 Operation Date: 08/31/22 22:30 Proposed Procedures p Laparoscopy Diagnostic(Not Applicable) - Dennis Melo MD Familial anesthetic complications: PONV Was Beta Sandeep taken within 24 hours: N/A Was Clonidine taken within 24 hours: N/A Last intake: Intake Last Liquid Date 08/31/22 Last Liquid Time 20:45 Last Solid Date 08/31/22 Last Solid Time 11:00 Social No alcohol and No tobacco Exam alert, oriented x 3, clear to auscultation bilaterally and regular rate & rhythm Airway Submandibular: within normal limits Cervical ROM: within normal limits Mallampati: Class II Dentition: full Neuropsych Depression Anesthetic Plan ASA status: 2E Anesthesia: General (Mod RSI) Other: Nonviable Medications/Allergies Home Medications Medication Instructions Recorded Confirmed Last Taken Type PNV 153-FA 400 mcg-om3 35 mg-dha tab PO 11/17/21 02/03/22 Unknown History 25 mg-epa 5 mg-fish oil chew tablet ( Gummies) etonogestrel 0.12 mg-ethinyl 1 vag ring vaginal .monthly #3 ea 11/17/21 02/03/22 Unknown Rx estradiol 0.015 mg/24 hr vaginal ring (NuvaRing) bupropion HCl 150 mg tablet,12 hr 150 mg PO DAILY 01/02/22 02/03/22 Unknown History sustained-release (Wellbutrin SR) oseltamivir 75 mg capsule 75 mg PO BID 5 days #10 caps 02/03/22 02/03/22 Unknown Rx Allergies Allergy/AdvReac Type Severity Reaction Status Date / Time promethazine AdvReac Seizure Verified 02/03/22 11:14 like shaking [facility] Anesthesia Medical History Depression Is seeing , but is struggling to find a good medication that does not make her sleepy. No pertinent past medical history Denies: Hypertension, diabetes, hypercholesterol, heart, liver, lung, kidney, thyroid problems, bleeding or clottig disorders, DVT/PE. PCP: MAKENZIE Shah Surgical History H/O arthroscopic knee surgery (~2003) right knee--done for a torn meniscus Family History Denies family history of Colon cancer Ovarian cancer Diabetes Heart disease Hyperlipidemia Breast cancer Family history of thyroid problem Hypertension Uterine cancer Stroke Social History Substance/Drug Use: never Data Anesthesia 08/31/22 17:13 08/31/22 17:13 Short CBC 08/31/22 Range/Units 17:13 WBC 14.9 H (4.0-10.0) 10^3/uL Hgb 13.3 (11.5-15.3) g/dL Hct 40.4 (37.0-47.0) % MCV 93.1 (81-99) fl Plt Count 339 (130-400) 10^3/cmm Neut % (Auto) 90.9 % Neut # (Auto) 13.51 H (1.8-7.7) 10^3/uL BMP 08/31/22 17:13 Sodium 135 L Potassium 4.5 Chloride 102 Carbon Dioxide 20 L BUN 10 Creatinine 0.7 Glucose 123 H Calcium 9.0 Liver Function 08/31/22 Range/Units 17:13 Total Bilirubin 1.0 (0.15-1.2) mg/dL AST 14 (0-32) U/L ALT 14 (0-33) U/L Alkaline Phosphatase 72 (35-105) U/L Albumin 4.5 (3.5-5.2) g/dL Blood Bank 08/31/22 17:13 Blood Type A Positive Rho(D) Type Positive Cardiac Studies: No Data to Display
[2022-08-31 22:01] VITALS: BP 102/88; PULSE 148; RESP 16; TEMP 36.6; O2SAT 98
[2022-08-31] MEDS: sodium chloride 0.9% 1,000 ML 30 ML IV (22:03)
[2022-08-31] MEDS: scopolamine 1.5 Patch 1 PATCH TRANSDERMA (22:08)
[2022-09-01] VITALS (14 sets, daily range): BP systolic 94–113; BP diastolic 58–74; PULSE 81–105; RESP 15–20; TEMP 36.3–36.8; O2SAT 96–100; BMI 26.6
[2022-09-01] MEDS: ondansetron 2 mg/ML SDV 2 mL 4 MG IVP (00:24)
[2022-09-01] MEDS: ketorolac 30 mg/mL INJ IVP (01:18)
--- NOTE | 2022-09-01 02:34 | PC.NURSE ---
This RN assisted patient to edge of bed at 0130. Patient stated she needed to go to bathroom. After sitting up at the edge of bed patient got dizzy and light headed, she stated she needed to lay back in bed. Assisted patient to lay back and instructed patient to hit call light when she felt like she could get up again. Educated patient on not getting up for the first time without a nurse at bedside.
--- NOTE | 2022-09-01 02:36 | PC.NURSE ---
This RN was at bedside with patient and her mother whom was also at bedside, when patient asked me what was done during surgery. The patients mother stated Dr. Melo told her she had an ectopic and a suction D&C. The patient asked why me she needed a D&C, I stated, I am unable to answer that at this time, I am still waiting for operative notes. I was told during report you had a salpingectomy, an ectopic , and a suction D&C. The patient then stated, So I had two babies . I stated, According to the report I got from PACU, yes that would be correct. She stated, Okay, thank you. I told the patient and her mother as soon as I got operative notes I would be able to better explain what happen during surgery.
[2022-09-01] MEDS: HYDROcodone-acetaminophen 5-325 mg Tablet PO ×3 (04:28→15:50)
[2022-09-01] MEDS: cetylpyridinium Lozenge 1 EACH MUCOUS MEM (04:41)
[2022-09-01 04:54] LABS: Hematocrit 27.2 % (37.0-47.0); Hemoglobin 8.7 g/dL (11.5-15.3); Mean Corpuscular Hemoglobin 30.2 pg (28.0-34.0); Mean Corpuscular Volume 94.4 fl (81-99); Platelet Count 243 10^3/cmm (130-400); Red Blood Count 2.88 10^6/uL (4.1-5.3); White Blood Count 11.8 10^3/uL (4.0-10.0)
--- NOTE | 2022-09-01 07:44 | ANE.PACU2 ---
Inpatient post-anesthesia follow up: Airway intact: Yes Vital signs: Temperature 98.2 F Pulse Rate 93 Respiratory Rate 15 Blood Pressure 94/65 Pulse Oximetry 98 Oxygen Delivery Me thod Room Air Oxygen Flow Rate Fraction of Inspir ed Oxygen Hydration adequate: Yes Nausea and vomiting: No Pain level: 3 Mental status: Baseline
--- NOTE | 2022-09-01 07:56 | PM.OP ---
Operative Report Date of procedure: August 31, 2022 Pre-op diagnosis: Preop Diagnosis 6 weeks gestation; absent heart motion; severe abdominal pain; 9 cm complex right adnexal mass Post-op diagnosis: Ruptured 3 cm right tubal ectopic Hemoperitoneum with approximately 100 cc blood / clots in pelvis Tissue in endometrial cavity Post-op findings: ruptured right tubal ectopic gestation Approximately 100 cc blood / clots in pelvis due to rupture Normal uterus Normal ovaries normal left fallopian tube Tissue from endometrial cavity Procedure done: laparoscopy laparoscopic right partial salpingectomy suction dilatation and curettage of uterus Specimens removed/disposition: Right tubal ectopic / right fallopian tube segment Endometrial tissue Surgeon: Dennis Melo MD Anesthesia: General Estimated blood loss: 100 cc blood / clots already in abdomen Intraoperative blood loss approximately 5 cc Complications: none Brief History: 32 y.o. at approximately 5-6 weeks of gestation, presented to ER with acute worsening abdominal pain of one-day duration. Pelvic sono showed non-viable 6-week intrauterine pole and 9 cm complex right adnexal mass Procedure: Informed consent was obtained. The patient was taken to the OR and placed on the table. General endotracheal anesthesia was induced. The patient was then placed in dorsolithotomy position. The abdomen and perineum were then prepped and draped in the usual fashion. A Ratliff catheter and Zumi were placed. A 5 mm subumbilical skin incision was made. A 5 mm trocar with sheath was then inserted into the peritoneal cavity under direct visualization with the laparoscope. After confirming intraperitoneal position, pneumoperitoneum was achieved. Two separate 5 mm incisions were made in the right and left mid-quadrants. 5 mm trocars with sheaths were then inserted into the peritoneal cavity under direct visualization with the laparoscope. There was approx. 100 cc of blood and blood clots in pelvis. The uterus and ovaries were seen to be normal. The left fallopian tube was normal. The right fallopian tube showed a mid-tubular 3 cm dilatation with rupture consistent with a ruptured ectopic gestation. Suction-radio division lieutenant was used to remove blood and clots from the pelvis. An Enseal device was used to excise the right fallopian tube segment with the ectopic gestation. No bleeding was seen. Due to the size of the fallopian tube segment, a 10 mm trocar with sheath was placed at the umbilical port site. An endo-pouch was used to remove the specimen. The pelvis was irrigated and any remaining blood clots removed. The uterus, ovaries, and right fallopian tube were again seen to be normal. All instruments were removed from the abdominal cavity after the pneumoperitoneum was allowed to escape. The skin incisions were closed using 3-O chromic in subcuticular fashion. Dermabond was applied. The Ratliff catheter and Zumi were removed. A speculum was placed in the vagina. The anterior lip of the cervix was grasped with a sharp-toothed tenaculum. The cervix was serially dilated with Hegar dilators. A #8 curved suction curette and then a sharp curette were used to evacuate the contents of the uterus. Tissue was obtained and sent to pathology. No bleeding was seen. All instruments were then removed from the cervix and vagina. The patient was then placed supine and awakened, taken the the PACU in good condition. Postoperative condition: good Complications: none EBL: 100 cc already in abdomen Intraoperative blood loss approximately 5 cc Sponge, needle and instruments counts were correct x two
[2022-09-01] MEDS: docusate sodium 100 mg Capsule PO (08:03)
[2022-09-01] MEDS: ibuprofen 800 mg tablet PO ×2 (08:03→15:14)
--- NOTE | 2022-09-01 16:43 | PM.OBGYDC ---
Discharge Providers ALUM OPERATOR Date of Admission: 08/31/22 23:04 Date of Discharge: 09/01/22 Attending Provider at Admission: Dennis Melo MD Attending Provider at Discharge: Dennis Melo MD Primary ALUM OPERATOR: Dennis Melo MD Diagnoses at Discharge Discharge Diagnosis (1) Pelvic pain affecting : Details from hospital stay: ruptured tubal ectopic Status: Resolved Qualifiers: Trimester: first trimester Qualified Code(s): O26.891 - Other specified related conditions, first trimester; R10.2 - Pelvic and perineal pain Reason for Visit Reason for Visit: Possible miscarriage abd pain approx. 5 weeks preg Hospital Course Hospital Course patient underwent laparoscopic right salpingectomy for ruptured right tubal ectopic and suction curettage of uterus on August 31, 2022 patient did well postop and was discharged home on September 01, 2022. Physical Exam Urinary Catheter Management: Ratliff Latex: Cath Placed During This Visit: yes, but has since been removed by the nurse Urinary Catheter Date of Insertion: 08/31/22 Urinary Catheter Time of Insertion: 22:47 Date Urinary Catheter Removed: 08/31/22 Time Urinary Catheter Discontinued: 23:35 History History History 1 Term 1 0 Miscarriages/Ectopic 0 Living Children 1 Discharge Data Studies Completed and Pending Completed Studies During Hospitalization Category Date Time Status Pathology: Surgical [PTH] Routine Pth 08/31/22 23:49 Completed US OB limited [id number] Stat Ultrasound 08/31/22 17:44 Completed Radiology Impressions Obstetrics Ultrasound 08/31/22 17:44 IMPRESSION: 1. Single intrauterine with ultrasonographic age of 6 weeks 3 days. Negative for heart rate demonstrated, perhaps due to early age. 2. Small amount of free fluid in the pelvis, nonspecific. 3. Right adnexal poorly defined 9.2 cm heterogeneous structure with minimal peripheral color flow on several images. Finding may reflect a hemorrhagic cyst or perhaps a hemorrhagic ectopic , please correlate clinically. ADDENDUM: 08/31/222016 THIS REPORT CONTAINS FINDINGS THAT MAY BE CRITICAL TO PATIENT CARE. Dr. Leiva adv has seen report and has no questions, adv he just spoke to Ob about this case at 8:16 PM CDT on 08/31/2022. The findings were acknowledged and understood. Laboratory Results WBC 11.8 10^3/uL (4.0-10.0) H 09/01/22 04:45 RBC 2.88 10^6/uL (4.1-5.3) L 09/01/22 04:45 Hgb 8.7 g/dL (11.5-15.3) L D 09/01/22 04:45 Hct 27.2 % (37.0-47.0) L D 09/01/22 04:45 MCV 94.4 fl (81-99) 09/01/22 04:45 MCH 30.2 pg (28.0-34.0) 09/01/22 04:45 MCHC 32.0 g/dL (30.0-36.0) 09/01/22 04:45 RDW 12.0 % (12.1-15.1) L 09/01/22 04:45 Plt Count 243 10^3/cmm (130-400) 09/01/22 04:45 MPV 11.0 fL (7.4-10.4) H 09/01/22 04:45 Neut % (Auto) 90.9 % 08/31/22 17:13 Lymph % (Auto) 6.5 % 08/31/22 17:13 Stevens % (Auto) 2.2 % 08/31/22 17:13 Eos % (Auto) 0.0 % 08/31/22 17:13 Baso % (Auto) 0.1 % 08/31/22 17:13 Neut # (Auto) 13.51 10^3/uL (1.8-7.7) H 08/31/22 17:13 Lymph # (Auto) 1.0 10^3/uL (0.8-4.8) 08/31/22 17:13 Stevens # (Auto) 0.3 10^3/uL (0.2-0.9) 08/31/22 17:13 Eos # (Auto) 0.0 10^3/uL (0.0-0.8) 08/31/22 17:13 Baso # (Auto) 0.0 10^3/uL (0.0-0.1) 08/31/22 17:13 Nucleated RBC % (auto) 0 % 08/31/22 17:13 Nucleated RBCs # 0.0 /100WBC 08/31/22 17:13 Sodium 135 mmol/L (136-145) L 08/31/22 17:13 Potassium 4.5 mmol/L (3.5-5.1) 08/31/22 17:13 Chloride 102 mmol/L (98-107) 08/31/22 17:13 Carbon Dioxide 20 mmol/L (22-29) L 08/31/22 17:13 Anion Gap 17.5 (5-19) 08/31/22 17:13 BUN 10 mg/dL (6-20) 08/31/22 17:13 Creatinine 0.7 mg/dL (0.5-0.9) 08/31/22 17:13 GFR Calculation 96.4 mL/min (90-130) 08/31/22 17:13 Glucose 123 mg/dL (65-115) H 08/31/22 17:13 Calculated Osmolality 280 mOsm/kg (285-295) L 08/31/22 17:13 Calcium 9.0 mg/dL (8.5-10.5) 08/31/22 17:13 Total Bilirubin 1.0 mg/dL (0.15-1.2) 08/31/22 17:13 AST 14 U/L (0-32) 08/31/22 17:13 ALT 14 U/L (0-33) 08/31/22 17:13 Alkaline Phosphatase 72 U/L (35-105) 08/31/22 17:13 Total Protein 7.5 g/dL (6.6-8.7) 08/31/22 17:13 Albumin 4.5 g/dL (3.5-5.2) 08/31/22 17:13 Globulin 3.0 g/dL (1.3-4.6) 08/31/22 17:13 Ser , Semi-Qnt 2046.00 mIU/mL 08/31/22 17:13 Blood Type A Positive 08/31/22 17:13 Rho(D) Type Positive 08/31/22 17:13 Procedures Performed laparoscopic right salpingectomy suction curettage of uterus Vitals Last Vital Signs Temp 98.1 F 09/01/22 16:07 Pulse 105 H 09/01/22 16:07 Resp 16 09/01/22 16:07 BP 102/64 09/01/22 16:07 Pulse Ox 98 09/01/22 02:56 O2 Del Method Room Air 09/01/22 02:56 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 + intrauterine pole ? CRL c/w 6 weeks ? No heart motion ? + 9.3 cm right complex adnexal mass Discharge Plan Discharge Patient Disposition: Home Condition: Stable Prescriptions: New Percocet 7.5-325 mg tablet 1 tab PO Q8H PRN (Reason: pain) Qty: 20 0RF Continued bupropion HCl [Wellbutrin SR] 150 mg tablet sustained-release 12 hr 150 mg PO DAILY Gummies 400 mcg-35 mg- 25 mg-5 mg tablet,chewable PO etonogestrel-ethinyl estradiol [NuvaRing] 0.12-0.015 mg/24 hr ring 1 vag ring vaginal .monthly Qty: 3 3RF oseltamivir 75 mg capsule 75 mg PO BID 5 Days Qty: 10 0RF Discharge Orders: Discharge Order (Routine); Ordered 09/01/22 Ordered By: Dennis Melo Discharge Diet: Usual diet Discharge Activity: Increase activity as tolerated Patient Instructions: Salpingectomy (DC), Opioid Safety Activity Restrictions/Additional Instructions: call Dr. Melo at cell: [phone] if questions or problems Discharge Attestations ALUM OPERATOR Time Spent in Discharge Care*: less than 30 min Coding Level of Care Code Acute Code for Chg Fwd Diagnoses Pelvic pain affecting O26.891; R10.2 Trimester: first trimester Time Spent (min) 20
--- NOTE | 2022-09-02 09:35 | P.DS_ITS ---
Discharge Providers CRIMINAL RESEARCH SPECIALIST Date of Admission: 08/31/22 23:04 Date of Discharge: 09/01/22 Attending Provider at Admission: Dennis Melo MD Attending Provider at Discharge: Dennis Melo MD Diagnoses at Discharge Discharge Diagnosis (1) Pelvic pain affecting : Details from hospital stay: patient with ruptured left tubal ectopic Laparoscopic left salpingectomy was performed In addition, ultrasound showed a 6-week non-viable intrauterine pole Suction curettage of uterus was also performed patient did well postoperatively and was discharged home on first postoperative day Status: Resolved Qualifiers: Trimester: first trimester Qualified Code(s): O26.891 - Other specified related conditions, first trimester; R10.2 - Pelvic and perineal pain Reason for Visit Reason for Visit: Possible miscarriage abd pain approx. 5 weeks preg Brief History: 32 y.o. at 6-weeks gestation, developed sudden onset of severe abdominal pain on August 30, 2022 presented to ER on August 31, 2022 Ultrasound showed a non-viable 6-week intrauterine pole and 9 cm right complex adnexal mass Hospital Course Hospital Course patient underwent laparoscopic right salpingectomy for ruptured right tubal ectopic and suction curettage of uterus on August 31, 2022 patient did well postop and was discharged home on September 01, 2022. Physical Exam Const: COMMON NORMALS: no acute distress, patient oriented x3 and alert Resp: COMMON NORMALS: normal respiratory effort and clear to auscultation bilaterally AUSCULTATION: clear to auscultation bilaterally Cardio: COMMON NORMALS: regular rate RATE: regular rate GI: COMMON NORMALS: Normal to inspection, nondistended, normoactive bowel sounds present and Soft to palpation PALPATION: Yes Soft to palpation Extremity: COMMON NORMALS: normal to inspection Neuro: COMMON NORMALS: patient oriented x3 SENSORIUM/ORIENTATION: Yes alert Urinary Catheter Management: Ratliff Latex: Cath Placed During This Visit: yes, but has since been removed by the nurse Urinary Catheter Date of Insertion: 08/31/22 Urinary Catheter Time of Insertion: 22:47 Date Urinary Catheter Removed: 08/31/22 Time Urinary Catheter Discontinued: 23:35 History History History 1 Term 1 0 Miscarriages/Ectopic 0 Living Children 1 Discharge Data Studies Completed and Pending Completed Studies During Hospitalization Category Date Time Status US OB limited [id number] Stat Ultrasound 08/31/22 17:44 Completed Pending at discharge Category Date Time Status Pathology: Surgical [PTH] Routine Pth 08/31/22 23:49 Ordered Radiology Impressions Obstetrics Ultrasound 08/31/22 17:44 IMPRESSION: 1. Single intrauterine with ultrasonographic age of 6 weeks 3 days. Negative for heart rate demonstrated, perhaps due to early age. 2. Small amount of free fluid in the pelvis, nonspecific. 3. Right adnexal poorly defined 9.2 cm heterogeneous structure with minimal peripheral color flow on several images. Finding may reflect a hemorrhagic cyst or perhaps a hemorrhagic ectopic , please correlate clinically. ADDENDUM: 08/31/222016 THIS REPORT CONTAINS FINDINGS THAT MAY BE CRITICAL TO PATIENT CARE. Dr. Leiva adv has seen report and has no questions, adv he just spoke to Ob about this case at 8:16 PM CDT on 08/31/2022. The findings were acknowledged and understood. Laboratory Results WBC 11.8 10^3/uL (4.0-10.0) H 09/01/22 04:45 RBC 2.88 10^6/uL (4.1-5.3) L 09/01/22 04:45 Hgb 8.7 g/dL (11.5-15.3) L D 09/01/22 04:45 Hct 27.2 % (37.0-47.0) L D 09/01/22 04:45 MCV 94.4 fl (81-99) 09/01/22 04:45 MCH 30.2 pg (28.0-34.0) 09/01/22 04:45 MCHC 32.0 g/dL (30.0-36.0) 09/01/22 04:45 RDW 12.0 % (12.1-15.1) L 09/01/22 04:45 Plt Count 243 10^3/cmm (130-400) 09/01/22 04:45 MPV 11.0 fL (7.4-10.4) H 09/01/22 04:45 Neut % (Auto) 90.9 % 08/31/22 17:13 Lymph % (Auto) 6.5 % 08/31/22 17:13 Hemphill % (Auto) 2.2 % 08/31/22 17:13 Eos % (Auto) 0.0 % 08/31/22 17:13 Baso % (Auto) 0.1 % 08/31/22 17:13 Neut # (Auto) 13.51 10^3/uL (1.8-7.7) H 08/31/22 17:13 Lymph # (Auto) 1.0 10^3/uL (0.8-4.8) 08/31/22 17:13 [place]phill # (Auto) 0.3 10^3/uL (0.2-0.9) 08/31/22 17:13 Eos # (Auto) 0.0 10^3/uL (0.0-0.8) 08/31/22 17:13 Baso # (Auto) 0.0 10^3/uL (0.0-0.1) 08/31/22 17:13 Nucleated RBC % (auto) 0 % 08/31/22 17:13 Nucleated RBCs # 0.0 /100WBC 08/31/22 17:13 Sodium 135 mmol/L (136-145) L 08/31/22 17:13 Potassium 4.5 mmol/L (3.5-5.1) 08/31/22 17:13 Chloride 102 mmol/L (98-107) 08/31/22 17:13 Carbon Dioxide 20 mmol/L (22-29) L 08/31/22 17:13 Anion Gap 17.5 (5-19) 08/31/22 17:13 BUN 10 mg/dL (6-20) 08/31/22 17:13 Creatinine 0.7 mg/dL (0.5-0.9) 08/31/22 17:13 GFR Calculation 96.4 mL/min (90-130) 08/31/22 17:13 Glucose 123 mg/dL (65-115) H 08/31/22 17:13 Calculated Osmolality 280 mOsm/kg (285-295) L 08/31/22 17:13 Calcium 9.0 mg/dL (8.5-10.5) 08/31/22 17:13 Total Bilirubin 1.0 mg/dL (0.15-1.2) 08/31/22 17:13 AST 14 U/L (0-32) 08/31/22 17:13 ALT 14 U/L (0-33) 08/31/22 17:13 Alkaline Phosphatase 72 U/L (35-105) 08/31/22 17:13 Total Protein 7.5 g/dL (6.6-8.7) 08/31/22 17:13 Albumin 4.5 g/dL (3.5-5.2) 08/31/22 17:13 Globulin 3.0 g/dL (1.3-4.6) 08/31/22 17:13 Ser , Semi-Qnt 2046.00 mIU/mL 08/31/22 17:13 Blood Type A Positive 08/31/22 17:13 Rho(D) Type Positive 08/31/22 17:13 Vitals Last Vital Signs Temp 98.1 F 09/01/22 16:07 Pulse 105 H 09/01/22 16:07 Resp 16 09/01/22 16:07 BP 102/64 09/01/22 16:07 Pulse Ox 98 09/01/22 02:56 O2 Del Method Room Air 09/01/22 02:56 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 + intrauterine pole ? CRL c/w 6 weeks ? No heart motion ? + 9.3 cm right complex adnexal mass Discharge Plan Discharge Patient Disposition: Home Condition: Stable Prescriptions: New Percocet 7.5-325 mg tablet 1 tab PO Q8H PRN (Reason: pain) Qty: 20 0RF ondansetron HCl 4 mg tablet 4 mg PO Q8H PRN (Reason: nausea and vomiting) 4 Days Qty: 20 0RF Continued bupropion HCl [Wellbutrin SR] 150 mg tablet sustained-release 12 hr 150 mg PO DAILY Gummies 400 mcg-35 mg- 25 mg-5 mg tablet,chewable PO etonogestrel-ethinyl estradiol [NuvaRing] 0.12-0.015 mg/24 hr ring 1 vag ring vaginal .monthly Qty: 3 3RF oseltamivir 75 mg capsule 75 mg PO BID 5 Days Qty: 10 0RF Discharge Orders: Discharge Order (Routine); Ordered 06/24/23 Ordered By: Dennis Melo Discharge Diet: Usual diet Discharge Activity: Increase activity as tolerated Patient Instructions: Salpingectomy (DC), Opioid Safety Activity Restrictions/Additional Instructions: call Dr. Melo at cell: [phone] if questions or problems Discharge Attestations CRIMINAL RESEARCH SPECIALIST Time Spent in Discharge Care*: less than 30 min Coding Level of Care Code Acute Code for Chg Fwd Diagnoses Pelvic pain affecting O26.891; R10.2 Trimester: first trimester Time Spent (min) 25
== END 2022-09-01 16:08 | disposition home or self-care (01) | DRG 819 ==
LOC: ER 20:55 → OR 21:04 → OBGYN 09-01 08:53
PROVIDERS: Admitting Provider Obstetrics & Gynecology; Emergency Provider Emergency Medicine; Visit Provider Obstetrics & Gynecology
PROC: (CPT 59150; 2022-08-31 22:30)
DX: O00.101 Right tubal pregnancy without intrauterine pregnancy (principal); O99.341 Other mental disorders complicating pregnancy, first trimester; Z3A.01 Less than 8 weeks gestation of pregnancy; F32.A Depression, unspecified
CPT/HCPCS: 36415; 76815; 80053; 84702; 85025; 85027; 86900; 88305; 96374; 96375; 96376; 99285; J0131; J1100; J1170; J1885; J2270; J2405; J2704; J2710; J3010; J3490; J7030; P9045

== ENCOUNTER → 2022-10-09 10:05 | Outpatient (BNVA) | payer BC, MEDICAID, SELFPAY | PROVIDERS: Visit Provider Obstetrics & Gynecology | DX: Z32.00 Encounter for pregnancy test, result unknown (principal) | CPT/HCPCS: 84702 ==

== ENCOUNTER → 2022-10-11 11:03 | Outpatient (BNVA) | payer BC, MEDICAID, SELFPAY | PROVIDERS: Visit Provider Obstetrics & Gynecology | DX: Z32.00 Encounter for pregnancy test, result unknown (principal) | CPT/HCPCS: 84702 ==

== ENCOUNTER 2024-11-13 14:10 | Outpatient (CLI) | payer OTHER, SELFPAY | END 2024-11-13 14:11 | disposition home or self-care (01) | LOC: LAB 14:14 | PROVIDERS: PCP Nurse Practitioner Family; Visit Provider Nurse Practitioner Women's Health | DX: Z32.01 Encounter for pregnancy test, result positive (principal) | CPT/HCPCS: 36415; 84702 ==

== ENCOUNTER 2024-11-20 08:14 | Outpatient (CLI) | payer OTHER, SELFPAY | END 2024-11-20 08:15 | disposition home or self-care (01) | PROVIDERS: PCP Nurse Practitioner Family; Visit Provider Nurse Practitioner Women's Health | DX: Z32.01 Encounter for pregnancy test, result positive (principal) | CPT/HCPCS: 36415; 84702 ==

== ENCOUNTER 2024-11-24 07:13 | Outpatient (CLI) | payer OTHER, SELFPAY ==
--- NOTE | 2024-11-24 07:15 | US_ITS ---
WS: [id number] EARLY OBSTETRICAL ULTRASOUND (<14 WEEKS). HISTORY: Z32.01 - Encounter for test, result positive COMPARISON: None available. Intrauterine gestational sac present in satisfactory position. Mean diameter of the gestational sac of 1.1 cm corresponds to a gestation of 5 weeks and 6 days. There is a normal-appearing yolk sac present. No pole or cardiac activity. No subchorionic hemorrhage. Cervix is closed. Neither ovary identified. No free fluid. US/US OB <=14 wk fetus w transvag IMPRESSION: 1. Early intrauterine gestation with sac measurement corresponding to an age o f 5 weeks and 6 days. 2. Normal gestational sac and normal yolk sac. No pole or cardiac activi ty identified at this time. Consider 1 week transvaginal pelvic ultrasound foll ow-up.
== END 2024-11-24 07:14 | disposition home or self-care (01) ==
PROVIDERS: PCP Nurse Practitioner Family; Visit Provider Nurse Practitioner Women's Health
DX: Z32.01 Encounter for pregnancy test, result positive (principal)
CPT/HCPCS: 76801; 76817; 76830; 76856